=== PATIENT | female | born 1980 | race Caucasian/White ===

== ENCOUNTER 2025-09-02 08:16 | Emergency (ER) | payer SELFPAY ==
--- NOTE | 2025-09-02 08:20 | W.ED.GENADLT ---
HPI - General Adult General: Chief complaint: Extremity Problem,Nontraumatic Stated complaint: RT Hand Pain Time Seen by Provider: 09/02/25 08:16 Source: patient and EMS Mode of arrival: EMS Limitations: no limitations History of Present Illness: 45-year-old female states that just prior to arrival her right hand and tips of her fingers were changing to blue and white and having severe pain in that hand. She states she has had this before in the past. She denies any injuries states that she is warm her hands up and the colors came back her pain has improved rates pain a 4 out of 10 currently. Related Data Allergies Allergy/AdvReac Type Severity Reaction Status Date / Time sulfamethoxazole (From Allergy ADR-Vomitin Verified 09/02/25 08:26 Bactrim) g trimethoprim (From Bactrim) Allergy ADR-Vomitin Verified 09/02/25 08:26 g Physical Exam Const: COMMON NORMALS: no acute distress, patient oriented x3 and healthy appearing HENMT: COMMON NORMALS: normocephalic and atraumatic HEAD & SCALP: normocephalic and atraumatic Neck/C-Spine: COMMON NORMALS: full ROM and supple Chest: COMMONS NORMALS: normal inspection of the chest Resp: COMMON NORMALS: normal respiratory effort Cardio: COMMON NORMALS: regular rate RATE: regular rate Extremity: COMMON NORMALS: normal to inspection and full ROM NARRATIVE EXTREMITY EXAM: Distal pulses sensation intact to right upper extremity Neuro: COMMON NORMALS: patient oriented x3, moves all extremities and no focal motor deficits Psych: COMMON NORMALS: mental status grossly normal, Normal thought process present and cooperative THOUGHT PROCESS: Normal thought process present Skin: COMMON NORMALS: no rashes or lesions noted and no wounds GENERAL SKIN EXAM: no rashes or lesions noted Course Vital Signs: Vital signs: Vital Signs Temperature 98.1 F 09/02/25 08:22 Pulse Rate 89 09/02/25 08:22 Respiratory Rate 16 09/02/25 08:22 Blood Pressure 167/97 09/02/25 08:41 Pulse Oximetry 96 09/02/25 08:41 Oxygen Delivery Me thod Room Air 09/02/25 08:41 MDM - General Adult Medical Decision Making 45-year-old female who presented here with hand pain is likely Raynaud's phenomenon. Patient states she had had discoloration to her fingers that were blue and white states this happened before does have pain with as well that is since resolved she is currently pain-free she has distal pulse sensation intact she is to follow-up with PCP and return if worsening she understands agrees to plan Medical Records I reviewed the patient's medical records. 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
[2025-09-02 08:22] VITALS: BP 167/97; PULSE 89; RESP 16; TEMP 36.7; O2SAT 98; BMI 23.6
[2025-09-02 08:41] VITALS: BP 167/97; O2SAT 96
== END 2025-09-02 09:10 | disposition home or self-care (01) ==
PROVIDERS: Emergency Provider Emergency Medicine
DX: I73.00 Raynaud's syndrome without gangrene (principal)
CPT/HCPCS: 99282